=== PATIENT | female | born 2005 | race Caucasian/White ===

== ENCOUNTER 2023-12-01 14:21 | Outpatient (OUT) | payer OTHER, SELFPAY ==
--- NOTE | 2023-12-01 14:31 | XR_ITS ---
The [address] [address] Patient Name: NEIL OSMAN MRN: [id number] date: 2005 Sex: F Assigned Patient Location: [facility] Current Patient Location: [facility] Accession/Order Number: [id number] Exam Date: 12/01/2023 14:33 Report Date: 12/01/2023 15:49 At the request of: HIPOLITO MIDDLETON Procedure: XR knee RT 3V PROCEDURE: XR knee RT 3V COMPARISON: None. HISTORY: right knee pain M25.561 FINDINGS: BONES:No fracture, acute abnormality, or significant arthropathy. SOFT TISSUES:Negative. No visible soft tissue swelling. EFFUSION:None visible. OTHER: Negative. XR/XR knee RT 3V IMPRESSION: No acute radiographic abnormality Electronically authenticated by: JACKIE ZAVALA Date: 12/01/2023 15:49
== END 2023-12-01 14:22 | disposition home or self-care (01) ==
LOC: RAD 14:26
PROVIDERS: PCP Family Medicine; Visit Provider Nurse Practitioner Family
DX: M25.561 Pain in right knee (principal)
CPT/HCPCS: 73562